=== PATIENT | male | born 1970 | race Caucasian/White ===

== ENCOUNTER → 2017-04-22 | Outpatient (REF) | payer MEDICARE, OTHER ==
[~2017-04-22] MED LIST: AMLO10TA2 PO; DRIS50002 PO; LABE10TAB PO; MINOXIDIL PO; PHOS667C5 PO; [UNRECOGNIZED DRUG - OTHER] PO
== END ==
LOC: M LAB REF 12:52
PROVIDERS: ATTEND Internal Medicine Nephrology
DX: Z94.0 Kidney transplant status (principal)

== ENCOUNTER → 2017-10-27 | Outpatient (REF) | payer OTHER ==
[2017-10-27 13:56] LABS: CHOLESTEROL LEVEL 229 MG/DL (<200); HDL CHOLESTEROL 53 MG/DL (>40); LDL CHOLESTEROL 152.6 MG/DL (<100); NON-HDL-C 176 MG/DL; TRIGLYCERIDES LEVEL 117 MG/DL (<150)
[2017-10-30 00:07] LABS: FK 506 (TACROLIMUS) LABCORP 5.3 ng/mL (2.0-20.0)
== END ==
LOC: M LAB REF 13:15
DX: Z48.22 Encounter for aftercare following kidney transplant (principal); Z94.0 Kidney transplant status; E78.5 Hyperlipidemia, unspecified

== ENCOUNTER → 2018-02-25 | Outpatient (REF) | payer OTHER ==
[2018-02-27 00:07] LABS: FK 506 (TACROLIMUS) LABCORP 5.4 ng/mL (2.0-20.0)
== END ==
LOC: M LAB REF 13:58
DX: Z48.22 Encounter for aftercare following kidney transplant (principal); Z94.0 Kidney transplant status
CPT/HCPCS: 80197

== ENCOUNTER → 2018-10-12 | Outpatient (REF) | payer OTHER ==
[~2018-10-12] MED LIST changes: -AMLO10TA2 PO; +AMLO10TA4 PO; -DRIS50002 PO; +DRIS50003 PO
[2018-10-12 13:59] LABS: CHOLESTEROL RISK RATIO 4.545 (<5)
== END ==
LOC: M LAB REF 12:39
PROVIDERS: ATTEND Internal Medicine Nephrology
DX: Z48.22 Encounter for aftercare following kidney transplant (principal); Z94.0 Kidney transplant status; E78.00 Pure hypercholesterolemia, unspecified